=== PATIENT | male | born 1960 | race Caucasian/White ===

== ENCOUNTER 2022-03-23 09:19 | Emergency (ER) | payer MEDICAID ==
[~2022-03-23] VITALS: Ht 177.8 cm; Wt 90.9 kg
[~2022-03-23 09:19] MED LIST: CLON-527 PO; OMEP20CA15 PO; PRAV40TA3 PO; QUET400T PO; SERT-434 PO
[2022-03-23 10:10] LABS: ALANINE AMINOTRANSFERASE 19 U/L (12-78); ALBUMIN 3.7 G/DL (3.4-5.0); ALBUMIN/GLOBULIN RATIO 1.1 (1.1-1.5); ALKALINE PHOSPHATASE 59 IU/L (46-116); ANION GAP 10 (8-16); ASPARTATE AMINO TRANSFERASE 15 U/L (10-37); BILIRUBIN,TOTAL 1.5 MG/DL (0.1-1.0); BLOOD UREA NITROGEN 29 MG/DL (7-18); BUN/CREATININE RATIO 14.1 (5.4-32.0); CALCIUM 8.3 MG/DL (8.5-10.1); CHLORIDE 100 MMOL/L (99-107); CREATININE 2.05 MG/DL (0.60-1.10); GLUCOSE 127 MG/DL (70-104); POTASSIUM 3.4 MMOL/L (3.5-5.1); SODIUM 136 MMOL/L (135-145); TOTAL CARBON DIOXIDE 26.4 MMOL/L (24-32); eGFR 33 ML/MIN
[2022-03-23 10:37] LABS: BASOPHILS % (AUTO) 0.1 % (0-1); MEAN CORPUSCULAR VOLUME 87.8 FL (78-98); NEUTROPHILS # (AUTO) 0.1 X10'3 (1.8-7.7)
[2022-03-23 10:38] LABS: EOSINOPHILS % (AUTO) 0.7 % (0-6); HEMOGLOBIN 7.1 g/dl (14.0-17.9); LYMPHOCYTES # (AUTO) 0.7 X10'3 (1.1-4.8); MEAN CORPUSCULAR HEMOGLOBIN 31.2 PG (27.0-31.0); MEAN CORPUSCULAR HGB CONC 35.6 g/dL (33.0-36.5); MEAN PLATELET VOLUME 11.2 FL (7.4-10.4); MONOCYTES % (AUTO) 1.5 % (2-12); NEUTROPHILS % (AUTO) 10.7 % (42-75); RED BLOOD COUNT 2.28 X10'6 (4.70-6.10); RED CELL DISTRIBUTION WIDTH 14.4 % (11.5-14.5)
[2022-03-23 10:53] LABS: WHITE BLOOD COUNT 0.8 X10'3 (4.5-11.0)
[2022-03-23 10:54] LABS: PLATELET COUNT < 3 X10'3 (140-440)
--- NOTE | 2022-03-23 11:20 | NUR ---
patient received in room 3.
--- NOTE | 2022-03-23 11:24 | NUR ---
patient hard stick, PICC RN at bedside.
[2022-03-23 15:56] LABS: CLARITY,URINE CLEAR (Clear); GLUCOSE, URINE NEGATIVE (Neg); KETONES,URINE NEGATIVE (Neg); LEUKOCYTE ESTERASE ,URINE NEGATIVE (Neg); NITRITES, URINE NEGATIVE (Neg); OCCULT BLOOD,URINE NEGATIVE (Neg); PH,URINE 6.5 (4.8-8.0); PROTEIN,URINE TRACE mg/dl (Neg)
[2022-03-23 16:00] LABS: COLOR,URINE DARK YELLOW (Yellow); UA COLLECTION TYPE CLN CATCH MIDSTREAM
[2022-03-23 16:03] LABS: BACTERIA,URINE NONE SEEN /HPF (Neg); MUCUS STRANDS NONE SEEN /LPF (Neg); RBC,URINE 0-2 /HPF (0-2); SQUAMOUS EPITHELIAL CELL,UR NONE SEEN /LPF (FEW); WBC,URINE 0-4 /HPF (0-4)
--- NOTE | 2022-03-23 19:28 | NUR ---
Pt pink, alert, no acute impending distress. PIV righ bicept dressing changed, enforced with coban. Pt. armando. well, remained pink. Pt laying supine, able to move self in bed PRN.
--- NOTE | 2022-03-23 19:46 | NUR ---
Pt eating turkey sandwich and jellow. [place], alert, no acute impending distress. PIV sites c/d/i s complication. Will continue to monitor for acute changes and needs.
--- NOTE | 2022-03-23 20:45 | NUR ---
Pt pink, alert, no acute/resp distress. Bed in lowest position, wheels locked, rail 2/2 up, call laureano in reach. Will continue to monitor for acute changes and needs. Will continue to monitor for acute changes and needs. PIV c/d/i s complication or adverse.
[2022-03-24] VITALS (12 sets, daily range): BP systolic 102–122; BP diastolic 61–78
--- NOTE | 2022-03-24 03:54 | NUR ---
Pt assessment pre, during and post transfusion pt well, pink, no s/s of complication or adverse reaction. PIV site c/d/i s complication. Bed in lowest position, wheels locked, rail 2/2 up. Call laureano in reach.
--- NOTE | 2022-03-24 05:07 | NUR ---
Pt pink, alert, no acute/resp distress. Bed in lowest position, wheels locked, rail 2/2 up, call laureano in reach. PIV site c/d/i s complication.
--- NOTE | 2022-03-24 06:08 | NUR ---
Handoff report to dayshift RN
[2022-03-24 07:05] LABS: HIV ANTIBODY 1&2 RAPID NON-REACTIVE (Neg)
--- NOTE | 2022-03-24 07:53 | NUR ---
patient awake,denies discomfort.awaiting transfer.
--- NOTE | 2022-03-24 16:29 | NUR ---
CALLED REPORT TO ED JOCE REYNA AT [facility].MARIBEL YANG TO TRANSPORT
== END 2022-03-24 17:03 ==
LOC: ER 09:20
DX: D61.818 Other pancytopenia (principal); Z20.822 Contact with and (suspected) exposure to COVID-19; R06.00 Dyspnea, unspecified; I10 Essential (primary) hypertension; F17.210 Nicotine dependence, cigarettes, uncomplicated; F15.90 Other stimulant use, unspecified, uncomplicated; Z98.890 Other specified postprocedural states; Z72.89 Other problems related to lifestyle; Z60.2 Problems related to living alone; Z56.0 Unemployment, unspecified; Z59.00 Homelessness unspecified; Z79.899 Other long term (current) drug therapy
CPT/HCPCS: 36410; 36415; 36430; 71045; 76937; 80053; 81001; 84145; 85025; 86644; 86703; 86885; 86900; 86901; 86920; 86945; 87635; 99285; C1751; C9803; P9016; P9035